=== PATIENT | female | born 1950 | race Caucasian/White ===

== ENCOUNTER 2019-07-10 08:44 | Outpatient (CLI) | payer MEDICARE, MEDICAID, SELFPAY ==
--- NOTE | ~2019-07-10 | US_ITS ---
EXAMINATION: US retroperitoneal comp, US retroperitoneal duplex ltd EXAM DATE: 07/10/2019 09:40 (accession [id number]), 07/10/2019 09:41 (accession [id number]) INDICATION: Hypertension. Abnormal kidney function. TECHNIQUE: Multiple grayscale and Doppler images of the kidneys were obtained (by a technologist who performed the scan) and subsequently reviewed. Multiple grayscale and Doppler images of the kidneys and renal arteries were obtained. There is no prior study for comparison. FINDINGS: There is bilateral renal cortical thinning. Right kidney: There is normal contour and echogenicity. It measures 8.5 x 4.7 x 3.7 centimeters. Th ere are no focal renal lesions identified. There is no hydronephrosis. Left kidney: There is normal contour and echogenicity. It measures 8.9 x 5.1 x 4.6 centimeters. The re are no focal renal lesions identified. There is no hydronephrosis. Bladder unremarkable. The aorta peak systolic velocity is 98 cm/s. The right renal artery peak systolic velocity is 123 cm/ s in the proximal segment, 97 cm/s in the mid segment, and 104 cm/s in the distal segment. The left r enal artery peak systolic velocity is 146 cm/s in the proximal segment, 68 cm/s in the mid segment, a nd 56 cm/s in the distal segment. IMPRESSION: 1. Renal cortical thinning, mild atrophy. 2. Renal artery Doppler velocities within normal limits. Reviewed, dictated and finalized at location B. IMPRESSION: 1. Renal cortical thinning, mild atrophy. 2. Renal artery Doppler velocities within normal limits.
== END 2019-07-10 08:45 | disposition home or self-care (01) ==
PROVIDERS: PCP Internal Medicine; Visit Provider Nurse Practitioner
DX: R94.4 Abnormal results of kidney function studies (principal); I10 Essential (primary) hypertension
CPT/HCPCS: 76770; 93976